=== PATIENT | female | born 1985 | race Caucasian/White ===

== ENCOUNTER 2016-03-25 06:21 | Emergency (ER) | payer BC ==
[~2016-03-25] VITALS: Ht 165.1 cm; Wt 60.1 kg
[2016-03-25] MEDS ORDERED: PREDNISONE50 MG PO (10:38)
[2016-03-25 10:56] VITALS: BP 119/87
== END 2016-03-25 10:58 | disposition home or self-care (01) ==
LOC: EME 06:21
DX: T48.3X5A Adverse effect of antitussives, initial encounter (principal); L27.0 Generalized skin eruption due to drugs and medicaments taken internally
CPT/HCPCS: 99281; 99284; J1200; J2930